=== PATIENT | male | born 1955 | race Caucasian/White ===

== ENCOUNTER 2018-04-30 06:49 | Emergency (ER) | payer BC ==
[2013-11-19 17:01] VITALS: Wt 86.2 kg
[~2018-04-30 06:49] MED LIST: AZIT-1 PO; CYCL10TA29 PO; IBUP800T37 PO; METF-450 PO; SIMV-42 PO; SIMV-49 PO
[2018-04-30] MEDS ORDERED: ASCO-182 PO (06:58)
[2018-04-30] MEDS ORDERED: ENT KIT ONE (07:09)
[2018-04-30] MEDS ORDERED: TRANEXAMIC AC 1000 MG/10ML SDV ONE (07:25)
--- NOTE | 2018-04-30 07:36 | ER Report ---
History and Physical Time Seen By MD: 07:05 Hx. of Stated Complaint: nosebleed x1 hour, draining back into throqat, mostly r side nostril HPI/ROS CHIEF COMPLAINT: Epistaxis HISTORY OF PRESENT ILLNESS: Patient has had 3 episodes of epistaxis since last Monday. Per patient he had not had prior epistaxis. He was able to resolve the first 2 at home. This morning, it started at 6 AM after he had awoken. And has been continually dripping. It appears to generally come from his right nostril and is also going back into his throat. He has had no recent trauma, travel, change in medications. He has been taking airborne for cold for 1 month (vitamin E). He has not been taking any antihistamines or decongestants. He has not had headache, shortness of breath, chest pain, fever, chills, lightheadedness. REVIEW OF SYSTEMS: Constitutional: No fever, no chills. Eyes: No discharge. ENT: above Cardiovascular: No chest pain, no palpitations. Respiratory: No cough, no shortness of breath. Gastrointestinal: No abdominal pain, no vomiting. Genitourinary: no dysuria Musculoskeletal: No back pain. Skin: No rashes. Neurological: No headache. Remainder of the 14 system rev: Yes Allergies: Coded Allergies: No Known Drug Allergies (Verified , 07/24/13) Home Meds Active Scripts Simvastatin (SIMVASTATIN) 20 Mg Tablet, 1 TAB PO HS, #90 TAB 0 Refills Prov:DOMINGA WRIGHT MD 04/20/18 Reported Medications Ascorbic Acid (VITAMIN C) 500 Mg Tablet, 500 MG PO, TAB 04/30/18 Discontinued Scripts Metformin Hcl (METFORMIN HCL) 500 Mg Tablet, 1 TAB PO QDAY, #90 TAB 3 Refills Prov:DOMINGA WRIGHT MD 03/08/18 Reviewed Nurses Notes: Yes Smoking Status: Never Smoker Exposure to Second Hand Smoke?: No Constitutional Vital Sign - Last 24 Hours 04/30/18 04/30/18 04/30/18 04/30/18 06:49 06:52 06:54 07:00 Temp 97.1 Pulse ??? 102 Resp 16 B/P (MAP) 123/92 (102) 123/92 120/85 (97) Pulse Ox 86 O2 Delivery Room Air 04/30/18 04/30/18 04/30/18/18/19 07:04 07:19 07:30 07:34 Pulse 95 91 88 B/P (MAP) 119/75 (90) Pulse Ox 91 93 89 04/30/18 04/30/18 07:49 07:56 Pulse 89 B/P (MAP) 108/80 (89) Pulse Ox 90 Physical Exam General Appearance: The patient is alert, has no immediate need for airway protection and no signs of toxicity. Eyes: Pupils equal and round no pallor or injection. ENT, Mouth: Mucous membranes are moist. He has venous bleeding from right nare. OP darkened due to swallowed blood, oth wnl. L nare nl. Respiratory: There are no retractions, lungs are clear to auscultation. Cardiovascular: Regular rate and rhythm. Neurological: alert, no focal deficits Skin: Warm and dry, no rashes. Musculoskeletal: no injury. Moves all ext DIFFERENTIAL DIAGNOSIS: After history and physical exam differential diagnosis was considered for epistaxis; posterior/arterial nosebleed, polyp, bleeding diathesis, or other emergent etiology. Medical Decision Making ED Course/Re-evaluation ED Course 62-year-old male presents with recurrent epistaxis. He had not had issues before a week ago. Of note, he is been taking airborne daily which has vitamin E here this and association with his own vitamins may have caused the bleeding. He is advised to stop airborne and understands strict return precautions for worsening bleeding. Procedure Procedure: Epistaxis control. The patient was anesthetized with epi 1% with lidocaine and afrin. The anterior epistaxis was identified. The patient was treated with cautery. Following the procedure the patient was re-examined and the bleeding was well controlled. The patient tolerated the procedure well. The procedure was performed by myself. Monitored; no rebleed Decision to Disposition Date: Apr 30, 2018 Decision to Disposition Time: 07:50 Depart Departure Latest Vital Signs Vital Signs Date Time Temp Pulse Resp B/P (MAP) Pulse Ox O2 Delivery O2 Flow Rate FiO2 04/30/18 07:56 108/80 (89) 04/30/18 07:49 89 90 04/30/18 06:54 97.1 16 Room Air Impression: Primary Impression: Epistaxis Condition: Improved Disposition: HOME OR SELF-CARE Referrals: DOMINGA WRIGHT MD (PCP) 5 Days Patient Instructions: Nosebleed (ED) Additional Instructions: As we discussed, I recommend you stop airborne. If you have another nosebleed, you may use Afrin 3-4 sprays in the affected nostril then followed by compression. If the bleeding continues after 20-30 minutes please come back to the emergency department. If you have another bleed, I recommend that you follow-up with your primary doctor to get a referral to the ENT doctor to further evaluate the cause. CAITY GARDUNO MD Apr 30, 2018 07:36
[2018-04-30 07:56] VITALS: BP 108/80
[2018-04-30] MEDS ORDERED: LIDO/EPI 2% MDV 1:100,000 20ML INFIL ONE (08:10)
[2018-04-30] MEDS ORDERED: PHENYLEPHRINE 0.5% 15 ML BTL ONE (08:10)
== END 2018-04-30 08:00 | disposition home or self-care (01) ==
LOC: ER 07:10
DX: R04.0 Epistaxis (principal)
CPT/HCPCS: 99282

== ENCOUNTER → 2018-05-29 | Outpatient (CLI) | payer BC ==
[2013-11-19 17:01] VITALS: BMI 25.1
[~2018-05-29] MED LIST changes: +ASCO-182 PO
[2018-05-29 11:30] LABS: PLATELET COUNT, AUTOMATED 220 K/uL (150-450)
== END ==
LOC: LAB 11:00
PROVIDERS: ATTEND Emergency Medicine
DX: R04.0 Epistaxis (principal)
CPT/HCPCS: 36415; 85025